=== PATIENT | male | born 1995 | race Caucasian/White ===

== ENCOUNTER 2019-01-26 17:14 | Emergency (ER) | payer OTHER ==
[~2019-01-26] VITALS: Ht 172.7 cm; Wt 96.6 kg
== END 2019-01-26 18:28 | disposition home or self-care (01) ==
LOC: ER 17:14
DX: S61.411A Laceration without foreign body of right hand, initial encounter (principal); W45.8XXA Other foreign body or object entering through skin, initial encounter; Y93.89 Activity, other specified; Y92.69 Other specified industrial and construction area as the place of occurrence of the external cause; Y99.8 Other external cause status

== ENCOUNTER 2019-02-05 14:20 | Emergency (ER) | payer OTHER ==
[~2019-02-05] VITALS: Ht 172.7 cm; Wt 97.5 kg
== END 2019-02-05 18:35 | disposition home or self-care (01) ==
LOC: ER 14:20
DX: Z48.02 Encounter for removal of sutures (principal)